=== PATIENT | male | born 2000 | race Hispanic/Latino ===

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

== ENCOUNTER 2022-05-22 13:14 | Emergency (ER) | payer OTHER ==
[~2022-05-22 13:14] MED LIST changes: -Iopamidol 370 76% 100 ML VIAL ONE; +Iopamidol-370 76% 500 ML MDV (1 ML CHARGE) ONE
[2022-05-22] MEDS ORDERED: Ondansetron PF 4 MG/2 ML Vial ONE (14:03)
[2022-05-22 14:16] LABS: #Monocytes 0.6 thou/uL (0.11-0.59); #Neutrophils 3.6 thou/uL (1.40-6.50); %Basophils 0.2 % (0.0-1.0); %Eosinophils 0.6 % (0.0-10.0); %Lymphocytes 19.8 % (28.0-48.0); %Monocytes 11.2 % (0.0-4.0); %Neutrophils 68.2 % (31.0-61.0); Hemoglobin 15.8 g/dL (14.0-18.0); Mean Corpuscular HGB CONC 32.6 g/dL (32.0-36.0); Mean Corpuscular Hemoglobin 29.7 pg (25.0-35.0); Mean Corpuscular Volume 91.1 fl (78.0-98.0); Mean Platelet Volume 8.7 fL (7.4-10.4); Platelet Count 177 10x3/uL (130-400); RBC Distribution Width 11.4 % (11.5-14.5); Red Blood Cell (RBC) Count 5.34 mill/uL (4.00-5.20); White Blood Cell (WBC) Count 5.2 10x3/uL (4.8-10.8)
[2022-05-22 14:57] LABS: ALT (SGPT) 10 U/L (8-55); AST (SGOT) 10 U/L (10-45); Albumin 4.4 g/dL (3.5-5.0); Alkaline Phosphatase 80 U/L (50-130); Anion Gap 15 mmol/L (10-20); BUN (Urea Nitrogen) 5 mg/dL (8.4-21.0); Bilirubin, Total 1.6 mg/dL (0.2-1.2); Calc. Creatinine Clearance 0 mL/min (70-130); Calcium 9.8 mg/dL (7.8-10.44); Carbon Dioxide 25 mmol/L (22-29); Chloride 103 mmol/L (98-107); Estimated GFR 131; Globulin 2.7 g/dL (2.4-3.5); Glucose 91 mg/dL (70-105); Lipase Less than 4 U/L (8-78); Potassium 3.7 mmol/L (3.5-5.1); Protein, Total 7.1 g/dL (6.0-8.3); Sodium 139 mmol/L (136-145)
== END 2022-05-22 16:11 | disposition home or self-care (01) ==
LOC: ERS 13:14
DX: I88.0 Nonspecific mesenteric lymphadenitis (principal); K52.9 Noninfective gastroenteritis and colitis, unspecified; E11.9 Type 2 diabetes mellitus without complications
CPT/HCPCS: 36415; 74177; 80053; 83690; 85025; 86140; 96374; J2405; Q9967

== ENCOUNTER 2022-09-22 22:13 | Emergency (ER) | payer OTHER ==
[2022-09-23] MEDS ORDERED: Ketorolac Tromethamine 30 MG/ML VIAL ONE (00:52)
== END 2022-09-23 01:47 | disposition home or self-care (01) ==
LOC: ERS 22:13
DX: R07.2 Precordial pain (principal); E11.9 Type 2 diabetes mellitus without complications
CPT/HCPCS: 71045; 93005; 96372; J1885

== ENCOUNTER 2023-05-10 17:36 | Emergency (ER) | payer MEDICARE | END 2023-05-10 18:59 | disposition home or self-care (01) | LOC: ERS 17:36 | DX: S50.11XA Contusion of right forearm, initial encounter (principal); E11.9 Type 2 diabetes mellitus without complications; W22.8XXA Striking against or struck by other objects, initial encounter; Y99.0 Civilian activity done for income or pay | CPT/HCPCS: 99282 ==

== ENCOUNTER 2023-07-30 16:58 | Emergency (ER) | payer MEDICARE, SELFPAY ==
[2023-07-30] MEDS ORDERED: Ibuprofen 800 MG TAB ONE (18:40)
[2023-07-30 18:44] LABS: Influenza A by NAA Not Detected (NotDetected); Influenza B by NAA Not Detected (NotDetected); SARS-CoV-2 NAA Rapid Test DETECTED (NotDetected)
== END 2023-07-30 20:28 | disposition home or self-care (01) ==
LOC: ERS 16:58
DX: U07.1 COVID-19 (principal); E11.9 Type 2 diabetes mellitus without complications
CPT/HCPCS: 99283

== ENCOUNTER 2023-10-31 20:53 | Emergency (ER) | payer SELFPAY ==
[2023-10-31] MEDS ORDERED: diphenhydrAMINE 25 MG CAP ONE (21:54)
[2023-10-31] MEDS ORDERED: Dexamethasone 10 MG/ML VIAL ONE (21:57)
== END 2023-10-31 22:44 | disposition home or self-care (01) ==
LOC: ERS 20:53
DX: L25.9 Unspecified contact dermatitis, unspecified cause (principal); E11.9 Type 2 diabetes mellitus without complications
CPT/HCPCS: 99282; J1100

== ENCOUNTER 2023-11-03 18:45 | Emergency (ER) | payer SELFPAY ==
[2023-11-03 19:20] LABS: #Basophils Less than 0.03 10x3/uL (0.0-0.2); %Basophils 0.1 % (0.0-1.0); %Eosinophils 1.1 % (0.0-10.0); %Lymphocytes 4.1 % (21.0-51.0); %Neutrophils 89.3 % (42.0-75.0); Hematocrit 47.4 % (42.0-52.0); Hemoglobin 16.2 g/dL (14.0-18.0); Mean Corpuscular HGB CONC 34.2 g/dL (32.0-36.0); Mean Corpuscular Hemoglobin 30.2 pg (27.0-31.0); Mean Corpuscular Volume 88.3 fL (78.0-98.0); Mean Platelet Volume 10.4 fL (7.4-10.4); Platelet Count 182 10x3/uL (130-400); RBC Distribution Width 11.9 % (11.5-14.5); Red Blood Cell (RBC) Count 5.37 mill/uL (4.70-6.10)
[2023-11-03 19:36] LABS: ALT (SGPT) 14 U/L (8-55); AST (SGOT) 13 U/L (5-34); Albumin 4.2 g/dL (3.5-5.0); Alkaline Phosphatase 83 U/L (40-110); Anion Gap 13 mmol/L (10-20); BUN (Urea Nitrogen) 8 mg/dL (8.9-20.6); Bilirubin, Total 1.3 mg/dL (0.2-1.2); Calc. Creatinine Clearance 0 mL/min (70-130); Calcium 9.3 mg/dL (7.8-10.44); Carbon Dioxide 22 mmol/L (22-29); Chloride 107 mmol/L (98-107); Estimated GFR 137; Globulin 2.8 g/dL (2.4-3.5); Glucose 105 mg/dL (70-105); Lipase 158 U/L (8-78); Magnesium 1.9 mg/dL (1.6-2.6); Potassium 3.9 mmol/L (3.5-5.1); Sodium 138 mmol/L (136-145)
[2023-11-03] MEDS ORDERED: Ondansetron PF 4 MG/2 ML Vial ONE (20:29)
[2023-11-03] MEDS ORDERED: Ketorolac Tromethamine 30 MG (1 mL) VIAL ONE (20:29)
[2023-11-03 21:00] LABS: Bacteria/HPF None Seen HPF (None Seen); Bilirubin Negative (Negative); Blood, Urine Negative (Negative); CAUTI Indications for Culture Pelvic or flank pain; Clarity Clear (Clear); Glucose, Urine (Dipstick) Normal (Negative); Ketone, Urine Negative (Negative); Leukocyte Negative Leu/uL (Negative); Nitrite Negative (Negative); Protein, Urine (Dipstick) Negative (Neg-Trace); RBC/HPF 0-3 HPF (0-3); Specific Gravity, Urine 1.027 (1.002-1.036); Squamous Epithelial 0-3 HPF (0-3); Urobilinogen Normal mg/dL (Less than 2); WBC/HPF 0-3 HPF (0-3); pH, Urine 6.5 (5.0-9.0)
[2023-11-03 21:04] LABS: Urine Culture Reflex No No
[2023-11-03] MEDS ORDERED: Dicyclomine 20 MG TAB ONE (21:09)
[2023-11-03] MEDS ORDERED: Famotidine/PF 20 mg/2ml Vial ONE (21:09)
== END 2023-11-03 21:25 | disposition home or self-care (01) ==
LOC: ERS 18:45
DX: K76.0 Fatty (change of) liver, not elsewhere classified (principal); M54.50 Low back pain, unspecified; R11.2 Nausea with vomiting, unspecified; R19.7 Diarrhea, unspecified; E11.9 Type 2 diabetes mellitus without complications; Z55.6 Problems related to health literacy
CPT/HCPCS: 36415; 74176; 76705; 80053; 81001; 83690; 83735; 85025; 96374; 96375; J1885; J2405; J3490

== ENCOUNTER 2023-11-30 12:05 | Emergency (ER) | payer SELFPAY ==
[2023-11-30] MEDS ORDERED: Ketorolac Tromethamine 30 MG (1 mL) VIAL ONE (12:25)
== END 2023-11-30 12:31 | disposition home or self-care (01) ==
LOC: ERS 12:05
DX: K08.89 Other specified disorders of teeth and supporting structures (principal); E11.9 Type 2 diabetes mellitus without complications
CPT/HCPCS: 96372; 99282; J1885

== ENCOUNTER 2024-10-07 06:11 | Emergency (ER) | payer SELFPAY ==
[2024-10-07 07:16] LABS: #Basophils 0.03 10x3/uL (0.0-0.2); #Eosinophils 0.16 10x3/uL (0.0-0.7); #Monocytes 0.38 10x3/uL (0.11-0.59); #Neutrophils 4.86 10x3/uL (1.40-6.50); %Basophils 0.4 % (0.0-1.0); %Eosinophils 2.1 % (0.0-10.0); %Lymphocytes 27.0 % (21.0-51.0); %Monocytes 5.1 % (0.0-10.0); %Neutrophils 65.0 % (42.0-75.0); Hematocrit 47.7 % (42.0-52.0); Hemoglobin 16.0 g/dL (14.0-18.0); Mean Corpuscular Hemoglobin 29.8 pg (27.0-31.0); Mean Corpuscular Volume 88.8 fL (78.0-98.0); Platelet Count 219 10x3/uL (130-400); Red Blood Cell (RBC) Count 5.37 mill/uL (4.70-6.10); White Blood Cell (WBC) Count 7.48 10x3/uL (4.8-10.8)
[2024-10-07 07:37] LABS: ALT (SGPT) 14 U/L (Less than 45); AST (SGOT) 18 U/L (11-34); Albumin 4.1 g/dL (3.1-4.5); Alkaline Phosphatase 96 U/L (40-110); Anion Gap 16 mmol/L (10-20); BUN (Urea Nitrogen) 9 mg/dL (8.9-20.6); Bilirubin, Total 0.4 mg/dL (0.3-1.2); Calc. Creatinine Clearance 0 mL/min (70-130); Calcium 9.6 mg/dL (7.8-10.44); Carbon Dioxide 21 mmol/L (22-29); Chloride 106 mmol/L (98-107); Globulin 2.8 g/dL (2.4-3.5); Glucose 151 mg/dL (70-105); Potassium 3.6 mmol/L (3.5-5.1); Sodium 139 mmol/L (136-145)
[2024-10-07 08:38] LABS: Bacteria/HPF None Seen HPF (None Seen); CAUTI Indications for Culture Pelvic or flank pain; Glucose, Urine (Dipstick) Normal (Negative); Leukocyte Negative Leu/uL (Negative); Protein, Urine (Dipstick) 10 mg/dL (Neg-Trace); RBC/HPF 0-3 HPF (0-3); Specific Gravity, Urine 1.023 (1.002-1.036); WBC/HPF 0-3 HPF (0-3)
[2024-10-07 09:19] LABS: Urine Culture Reflex No No
[2024-10-07] MEDS ORDERED: Iopamidol-370 76% 500 ML MDV (1 ML CHARGE) ONE (09:35)
== END 2024-10-07 09:29 | disposition home or self-care (01) ==
LOC: ERS 06:11
DX: R55 Syncope and collapse (principal); R42 Dizziness and giddiness; R29.700 NIHSS score 0
CPT/HCPCS: 36415; 70450; 71275; 80053; 81001; 84484; 85025; 85379; 93005; 96360; Q9967

== ENCOUNTER 2024-12-13 13:28 | Emergency (ER) | payer SELFPAY | END 2024-12-13 15:20 | disposition home or self-care (01) | LOC: ERS 13:28 | DX: L60.8 Other nail disorders (principal) | CPT/HCPCS: 99283 ==

== ENCOUNTER 2024-12-25 07:27 | Emergency (ER) | payer SELFPAY ==
[2024-12-25] MEDS ORDERED: Acetaminophen 500 MG TAB ONE (07:41)
[2024-12-25] MEDS ORDERED: Ketorolac Tromethamine 30 MG (1 mL) VIAL ONE (07:41)
== END 2024-12-25 08:35 | disposition home or self-care (01) ==
LOC: ERS 07:27
DX: J10.1 Influenza due to other identified influenza virus with other respiratory manifestations (principal)
CPT/HCPCS: 71045; 87428; 96372; J1885; Q0162